=== PATIENT | male | born 1960 | race Two or more races ===

== ENCOUNTER 2016-06-20 22:51 | Emergency (ER) | payer MEDICARE, OTHER ==
[~2016-06-20] VITALS: Ht 170.2 cm; Wt 111.0 kg
[~2016-06-20 22:51] MED LIST: ASPI-664 PO; ATOR20TA38 PO; CARV6.2579 PO; FURO40TA4 PO; LOSA100T47 PO; NIFE30TA8 PO; VALS320T11 PO
[2016-06-20 22:54] VITALS: Ht 170.2 cm; Wt 111.0 kg
[2016-06-21 00:52] VITALS: BP 147/88; PULSE 66; TEMP 97.8
--- NOTE | 2016-06-21 01:06 | ERD ---
ER Documentation Chief Complaint Date/Time DATE: 06/21/16 TIME: 01:01 Chief Complaint nose bleed since earlier today HPI 55-year-old male complaining of several episodes of epistaxis since 5 AM. He was able to control the bleeding. He also has runny nose and sneezing. Every time he sneezes, the nose would start bleeding again. Patient has history of ID , CHF, hypertension, hypercholesterol. He is taking blood pressure medications as well as diuretics. But he did not take his medication today. Denies fever or chills. Denies shortness of breath. Denies headache. Denies chest pain. ROS All systems reviewed and are negative except as per history of present illness. Medications Home Meds Reported Medications Aspirin* (Aspirin* EC) 81 Mg Tablet.dr, 81 MG PO DAILY, TAB 05/20/14 Atorvastatin Calcium* (Atorvastatin Calcium*) 20 Mg Tablet, 20 MG PO HS, TAB 05/20/14 Valsartan* (Diovan*) 320 Mg Tablet, 320 MG PO DAILY, TAB 05/20/14 Losartan Potassium* (Cozaar*) 100 Mg Tablet, 100 MG PO DAILY, TAB 05/20/14 Carvedilol* (Carvedilol*) 6.25 Mg Tablet, 6.25 MG PO BID, TAB 05/20/14 Furosemide* (Furosemide*) 40 Mg Tablet, 40 MG PO BID, TAB 05/20/14 Nifedipine (Nifedical XL*) 30 Mg/Bottle Tab.osm.24, 30 MG PO DAILY, TAB.SA 05/20/14 Allergies Allergies: Coded Allergies: No Known Drug Allergies (Verified Allergy, Unknown, 05/27/14) PMhx/Soc History of Surgery: Yes (cardiac cath) Hx Neurological Disorder: No Hx Respiratory Disorders: Yes (SOB W. EXCERTION) Hx Cardiac Disorders: Yes (HX OF ID, EDEL LOW EF) Hx Psychiatric Problems: Yes Hx Miscellaneous Medical Probl: Yes (cardiomyopathyhtn,dyslipidemia,) Hx Alcohol Use: No Hx Substance Use: No Hx Tobacco Use: Yes Smoking Status: Unknown if ever smoked Physical Exam Vitals Vital Signs Date Time Temp Pulse Resp B/P Pulse Ox O2 Delivery O2 Flow Rate FiO2 06/21/16 00:52 97.8 66 147/88 98 Room Air 06/20/16 22:54 98.7 71 18 195/92 97 Physical Exam General impression: Well-developed, well-nourished. Alert, oriented, in no acute distress Head: Normocephalic, atraumatic. Eyes: PERRL, EOM normal. Conjunctiva not injected. ENT: Clear nasal discharge noted in the right nostril. Blood clots in the left nostril, no active bleeding. Oral mucosa and oropharynx are normal. Neck: Supple, nontender. No lymphanopathy. No nuchal rigidity. Respiration: Normal respiratory effort. Lungs clear to auscultate bilaterally. No wheezes, rales or rhonchi. Cardiovascular: Regular rate and rhythm. No murmurs or extra heart sounds. Neuro: Mental status normal, speech normal. Skin: Normal turgor. No rash or lesions. Psych: Normal mood and affect. Procedures/MDM Well-appearing 55-year-old male presents to ED with several episodes of epistaxis today. He is able to control his bleeding. There is no active bleeding at this time. Patient is educated on techniques to stop the epistaxis. He is also advised to refrain from blowing his nose or sneezing for 12-24 hours to prevent recurrence of epistaxis. His blood pressure on presentation was 195/92. Recheck of blood pressure was 147/88. Patient is counseled on not skipping his medications. Patient also advised to follow-up with his PCP for medication adjustment to control his blood pressure. Patient appears well, stable for discharge and outpatient management. Medical decision making shared with patient and family. Education provided to patient and family. Patient and family expressed understanding of the plan. Medications on discharge: None. Follow-up: Primary care provider in 2-3 days or return to ED if worse. Departure Diagnosis: Primary Impression: Epistaxis Condition: Good Patient Instructions: Epistaxis (Adult) Referrals: JORGE DUQUE DO (PCP) Additional Instructions: Call your primary care doctor TOMORROW for an appointment during the next 2-3 days.See the doctor sooner or return here if your condition worsens before your appointment time. JARVIS AYERS NP Jun 21, 2016 01:06
== END 2016-06-21 01:11 | disposition home or self-care (01) ==
LOC: FTE 22:51
DX: R04.0 Epistaxis (principal); I10 Essential (primary) hypertension; Z87.891 Personal history of nicotine dependence; Z79.82 Long term (current) use of aspirin
CPT/HCPCS: 99282

== ENCOUNTER 2018-05-18 05:25 | Inpatient (IN) | payer MEDICARE, OTHER ==
[2018-05-18] VITALS (14 sets, daily range): BP systolic 103–124; BP diastolic 62–100; PULSE 70–76; RESP 16–28; Ht 172.7 cm; Wt 122.7 kg
[~2018-05-18] VITALS: Ht 172.7 cm; Wt 122.7 kg
[~2018-05-18 05:25] MED LIST changes: -ASPI-664 PO; +ASPI-817 PO; +LOSA100T3 PO; -LOSA100T47 PO; -VALS320T11 PO
[2018-05-18] MEDS ORDERED: FUROSEMIDE 100 MG INJ IV STA (05:31)
[2018-05-18] MEDS ORDERED: NITROGLYCERIN 50 MG/D5W (PMX) 250 ML IV STA (05:31)
[2018-05-18] MEDS ORDERED: ASPIRIN 81 MG TAB PO STA (05:31)
[2018-05-18] MEDS ORDERED: morphine 4 MG/ML VIAL IV STA (05:31)
--- NOTE | 2018-05-18 05:51 | ERD ---
ER Documentation Chief Complaint Chief Complaint SOB HPI This is a 57 mL comes in with acute onset shortness of breath. History of pulmonary edema past. Said he woke up feeling like he was "drowning ". No nausea no vomiting. Mild associated chest pain. No fevers or chills. No other current complaints. Reviewing EMR, patient's been here for pulmonary edema in the past multiple times. ROS All systems reviewed and are negative except as per history of present illness. Medications Home Meds Reported Medications Aspirin* (Aspirin* EC) 81 Mg Tablet.dr, 81 MG PO DAILY, TAB 05/20/14 Atorvastatin Calcium* (Atorvastatin Calcium*) 20 Mg Tablet, 20 MG PO HS, TAB 05/20/14 Losartan Potassium* (Cozaar*) 100 Mg Tablet, 100 MG PO DAILY, TAB 05/20/14 Carvedilol* (Carvedilol*) 6.25 Mg Tablet, 6.25 MG PO BID, TAB 05/20/14 Furosemide* (Furosemide*) 40 Mg Tablet, 40 MG PO BID, TAB 05/20/14 Nifedipine (Nifedical XL*) 30 Mg/Bottle Tab.osm.24, 30 MG PO DAILY, TAB.SA 05/20/14 Allergies Allergies: Coded Allergies: No Known Drug Allergies (Verified Allergy, Unknown, 05/27/14) PMhx/Soc History of Surgery: Yes (pace maker) Anesthesia Reaction: No Hx Neurological Disorder: Yes Hx Respiratory Disorders: No Hx Cardiac Disorders: Yes (cardiac arrest 2013/pace maker) Hx Psychiatric Problems: No Hx Miscellaneous Medical Probl: No Hx Alcohol Use: No Hx Substance Use: No Hx Tobacco Use: Yes (5-6 cig/filter/day) Physical Exam Vitals Vital Signs Date Temp Pulse Resp B/P (MAP) Pulse Ox O2 O2 Flow FiO2 Time Delivery Rate 05/18/18 98.0 122 29 190/137 100 BIPAP 05:43 (154) 05/18/18 99.2 118 26 220/118 100 05:31 (152) Physical Exam Const: No acute distress Head: Atraumatic Eyes: Normal Conjunctiva ENT: Normal External Ears, Nose and Mouth. Neck: Full range of motion. No meningismus. Resp: Clear to auscultation bilaterally Cardio: Regular rate and rhythm, no murmurs Abd: Soft, non tender, non distended. Normal bowel sounds Skin: No petechiae or rashes Back: No midline or flank tenderness Ext: No cyanosis, or edema Neur: Awake and alert Psych: Normal Mood and Affect Results 24 hrs Laboratory Tests Test 05/18/18 05:35 05/18/18 05:39 White Blood Count Pending Red Blood Count Pending Hemoglobin Pending Hematocrit Pending Mean Corpuscular Volume Pending Mean Corpuscular Hemoglobin Pending Mean Corpuscular Hemoglobin Concent Pending Red Cell Distribution Width Pending Platelet Count Pending Mean Platelet Volume Pending POC Venous Lactate 4.0 mmol/L Current Medications Medications Dose Sig/Usha Start Time Status Last (Trade) Ordered Route PRN Stop Time Admin Dose Reason Admin 250 ml @ ONCE STAT 05/18/18 05/18/18 Nitroglycerin 12 mls/hr IV 05:31 05:42 / Dextrose 05/19/18 02:20 Morphine 4 mg ONCE STAT 05/18/18 DC Sulfate IV 05:31 (morphine) 05/18/18 05:33 Aspirin 162 mg ONCE STAT 05/18/18 DC (Aspirin) PO 05:31 05/18/18 05:33 Furosemide 80 mg ONCE STAT 05/18/18 DC (Lasix) IV 05:31 05/18/18 05:33 Procedures/MDM EKG: Rate/Rhythm: Sinus tachycardia at 133 bpm QRS, ST, T-waves: [No changes consistent w/ acute ischemia] Impression: Sinus tachycardia Chest X-ray 1V Interpreted by me: Soft Tissue: No acute abnormalities Bones: No acute abnormalities Mediastinum/Cardiac Silhouette/Lungs: Cardiomegaly, increased interstitial fluid markings, cephalization. Impression: Acute pulmonary edema Patient's heart failure symptoms is concerning for acute decompensation and will require inpatient workup and monitoring. Further w/u for ischemia, arrhythmia, PE or dissection will be deferred to the inpatient team. Patient's lactic acid was elevated, however this is secondary to hypoxia from acute pulmonary edema and will not be treated for sepsis Accepting Care Team: Current data and ongoing care discussed. Time: 5:50 AM Primary Provider: Dr. Washington Consulting: Deferred to inpatient team Outstanding Data: none Departure Diagnosis: Primary Impression: Acute pulmonary edema Additional Impressions: Hypertensive emergency Respiratory failure Chronicity: acute Respiratory failure complication: unspecified whether with hypoxia or hypercapnia Qualified Codes: J96.00 - Acute respiratory failure, unspecified whether with hypoxia or hypercapnia Condition: Critical DUYEN DENNY May 18, 2018 05:51
[2018-05-18] MEDS ORDERED: IPRATROPIUM (NEB) 0.5 MG/2.5 ML AMP ONE (05:53)
[2018-05-18] MEDS ORDERED: LEVALBUTEROL (NEB) 1.25 MG/0.5 ML AMP ONE (05:53)
[2018-05-18] MEDS ORDERED: BISACODYL (EC) 5 MG TAB PO PRN (06:00)
[2018-05-18] MEDS ORDERED: ACETAMINOPHEN 650MG/20.3ML CUP PO PRN (06:00)
[2018-05-18] MEDS ORDERED: DOCUSATE SODIUM 100 MG CAP PO PRN (06:00)
[2018-05-18] MEDS ORDERED: IPRATROPIUM (NEB) 0.5 MG/2.5 ML AMP NEB PRN (06:00)
[2018-05-18] MEDS ORDERED: PANTOPRAZOLE 40 MG INJ IV SCH (06:00)
[2018-05-18] MEDS ORDERED: ONDANSETRON 4 MG INJ IV PRN (06:00)
[2018-05-18] MEDS ORDERED: FUROSEMIDE 20 MG INJ ONE (06:38)
[2018-05-18] MEDS ORDERED: CARV25TA79 PO (06:58)
[2018-05-18] MEDS ORDERED: SACU1TAB PO (06:59)
--- NOTE | 2018-05-18 07:32 | HP ---
Date/Time of Note Date/Time of Note DATE: 05/18/18 TIME: 07:30 Assessment/Plan VTE Prophylaxis Pharmacological prophylaxis: LMWH Lines/Catheters IV [facility]ter [facility]from [facility] Saline Lock Assessment/Plan Hospital Course This is a 57-year-old male being admitted to the ICU floor for: #1Flash pulmonary edema: Secondary likely to underlying hypertensive emergency versus [place] versus other pathology. Patient denies any chest pain. Patient did patient was initiated on BiPAP and started on a nitro drip this has resulted in improvement of his symptoms. He was also given 80 of IV Lasix. We will continue diuresis of the patient. We will obtain a stat echocardiogram at the request of the patient's liability analyst Dr. Glenroy werner. Initial troponin was negative will trend troponins, EKG did not show any acute changes compared to the old EKG. Will monitor closely in the ICU. #2 hypertensive emergency: Secondary possibly to underlying medical noncompliance versus excessive salt intake or fluid intake: Currently on nitro drip. We will resume patient's losartan. Will consult cardiology for further management. 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 Will resume at 40 IV twice daily. Resume patient's home medications. Echocardiogram is also in progress. #4 lactic acidosis: Possibly secondary to hypoperfusion. Patient is afebrile. We will continue to trend lactate. Blood cultures have been ordered. No indication for antibiotics at the current time. #5 diabetes mellitus: Most recent A1c is 5.6. #6 hypertension: Resume losartan, initiate further medications at the discretion of cardiology. #7 DVT GI prophylaxis: Lovenox, no GI prophylaxis indicated Further treatment strategy will be implemented as per the clinical course. Result Diagram: 05/18/18 0535 05/18/18 0535 Results 24hrs Laboratory Tests Test 05/18/18 05:31 05/18/18 05:35 05/18/18 05:39 Blood Gas Specimen Blood arterial Source Arterial Blood Date 05/18/2018 6:00:23 AM Drawn Arterial Blood pH 7.185 *L (Temp corrected) Arterial Blood pCO2 67.1 H (Temp correct) Arterial Blood pO2 248.2 H (Temp corrected) Arterial Blood HCO3 24.8 Arterial Blood Base -5.2 L Excess Arterial Blood 99.2 H Oxygen Saturation Geremias Test ACCEPTAB Arterial Blood Gas Right Radial Puncture Site Arterial 0.4 Blood Carboxyhemoglobin Arterial Blood 0.4 Methemoglobin Blood Gas A-a O2 178.8 H Differential Oxyhemoglobin Percent 98.4 Blood Gas Temperature 37.0 Blood Gas Respiration 16.0 Rate Blood Gas Actual 35 Respiration Rate Blood Gas Modality MASK - BIPAP FiO2 70.0 Blood Gas Pressure 13 Support Blood Gas IPAP/EPAP Ratio 18/5 Blood Gas Critical Value [address] DENNY Read Back Blood Gas Notified Whom Blood Gas Notified Time 05/18/2018 6:27:05 AM White Blood Count 15.3 #H Red Blood Count 5.72 Hemoglobin 17.4 Hematocrit 54.5 #H Mean Corpuscular Volume 95.3 Mean Corpuscular 30.4 Hemoglobin Mean Corpuscular 31.9 L Hemoglobin Concent Red Cell Distribution 12.9 Width Platelet Count 248 # Mean Platelet Volume 10.8 H Immature Granulocytes % 0.300 Neutrophils % 35.8 L Lymphocytes % 53.0 H Monocytes % 7.2 Eosinophils % 3.4 Basophils % 0.3 Nucleated Red Blood Cells 0.0 % Immature Granulocytes # 0.040 H Neutrophils # 5.5 Lymphocytes # 8.1 H Monocytes # 1.1 H Eosinophils # 0.5 Basophils # 0.0 Nucleated Red Blood Cells 0.0 # Prothrombin Time 12.4 Prothrombin Time Ratio 1.0 INR International 0.92 Normalized Ratio Activated 28.0 Partial Thromboplast Time Sodium Level 149 H Potassium Level 5.2 H Chloride Level 107 Carbon Dioxide Level 23 Anion Gap 19 H Blood Urea Nitrogen 20 Creatinine 0.88 Est Glomerular Filtrat > 60 Rate mL/min Glucose Level 196 Calcium Level 9.7 Total Bilirubin 0.4 Direct Bilirubin 0.00 Indirect Bilirubin 0.4 Aspartate Amino 33 Transf (AST/SGOT) Alanine 27 Aminotransferase (ALT/SGP T) Alkaline Phosphatase 66 Troponin I 0.040 B-Type Natriuretic 1750 H Peptide Total Protein 8.7 H Albumin 5.3 H Globulin 3.40 H Albumin/Globulin Ratio 1.55 POC Venous Lactate 4.0 *H HPI/ROS Admit Date/Time Admit Date/Time Hx of Present Illness Chief complaint: Acute shortness of breath This is a 57-year-old male with a past medical history systolic heart failure and hypertension who presents to the ED with sudden onset shortness of breath. Patient reports that he was seen by his liability analyst yesterday Dr. Glenroy werner and at that time everything was fine. He states that overnight he started developing sudden onset shortness of breath and came into the ER. Patient denies any chest pain. Patient in the emergency department was noted to be in hypertensive crisis with systolic blood pressure in the 220s. Patient also was noted to be short of breath. Patient was placed on BiPAP and started on nitro drip. Upon my examination at the bedside the patient's blood pressure had improved to 150 systolic. He was currently on BiPAP and he did report improvement in his breathing. He was given 80 of Lasix IV x1 Allergies: NKDA Medications: See Jul Const: As per HPI Eyes : No pain discharge or redness or change in visual acuity ENT: No pain, sore throat, congestion, congestion, dysphagia or discharge Respiratory: No shortness of breath, cough, sputum, wheezing, or pleuritic pain Cardiovascular: As per HPI GI : no change in appetite, abdominal pain, nausea, vomiting, diarrhea, constipation, or change in the color his stool Genitourinary: No dysuria, hematuria, flank pain , discharge or CVA tenderness Musculoskeletal: No joint pain, back pain, neck pain, restricted range of motion in neck or joints Skin: No rash, bruising or hives Neuro: No headache, dizziness, syncope, seizure, focal weakness Endocrine: No polyuria, polydipsia, temperature intolerance Psych: No hallucination, depression, anxiety or suicidal ideation PMH/Family/Social Past Medical History CHF, diabetes mellitus, hypertension Medications Current Medications Nitroglycerin/ Dextrose 250 ml @ 12 mls/hr ONCE STAT IV Last administered on 05/18/18at 05:42; Admin Dose 12 MLS/HR; Start 05/18/18 at 05:31; Stop 05/19/18 at 02:20 Aspirin (Halfprin) 81 mg DAILY PO ; Start 05/18/18 at 09:00 Atorvastatin Calcium (Lipitor) 20 mg HS PO ; Start 05/18/18 at 21:00 Losartan Potassium (Cozaar) 100 mg DAILY PO ; Start 05/18/18 at 09:00 Ondansetron HCl (Zofran Inj) 4 mg Q6H PRN IV NAUSEA AND/OR VOMITING; Start 05/18/18 at 06:00 Ipratropium [place] (Atrovent 0.02% (Neb)) 0.5 mg Q2H RESP THERAPY PRN NEB SHORTNESS OF BREATH; Start 05/18/18 at 06:00 Acetaminophen (Tylenol Liquid) 650 mg Q6H PRN PO PAIN LEVEL 1-3 OR FEVER; Start 05/18/18 at 06:00 Docusate Sodium (Colace) 100 mg Q12H PRN PO CONSTIPATION; Start 05/18/18 at 06:00 Bisacodyl (Dulcolax) 5 mg DAILY PRN PO CONSTIPATION; Start 05/18/18 at 06:00 Pantoprazole (Protonix Iv) 40 mg DAILY@06 IV Last administered on 05/18/18at 06:48; Admin Dose 40 MG; Start 05/18/18 at 06:00 Enoxaparin Sodium (Lovenox) 40 mg DAILY SC ; Start 05/18/18 at 09:00 Coded Allergies: No Known Drug Allergies (Unverified Allergy, Unknown, 05/18/18) Past Surgical History Pacemaker placement, diagnostic cardiac catheterization in 2014 Family History Significant Family History: no pertinent family hx Social History Smoking Status: Current every day smoker Drug Use: none Exam/Review of Systems Vital Signs Vitals Vital Signs Date Temp Pulse Resp B/P (MAP) Pulse Ox O2 O2 Flow FiO2 Time Delivery Rate 05/18/18 99 100 40 06:43 05/18/18 21 150/87 BIPAP 06:29 (108) 05/18/18 98.0 05:43 05/18/18 15 05:30 Exam Exam General: .patient currently sitting upright in bed on BiPAP and in moderate respiratory distress HEENT: Atraumatic, normocephalic. The pupils are equal, round and reactive. Extraocular motor are intact, on BiPAP Neck: Supple with full range of motion. No rigidity or meningismus Chest: Nontender, Lungs: Coarse breath sounds bilaterally to auscultation, bilateral crackles and rales diffusely, labored breathing Heart: Normal S1-S2, Regular rhythm and rate. Abdomen: Soft , nontender, nondistended , bowel sounds are present. No guarding no rebound tenderness , No masses or organomegaly. No costovertebral temporal angle mass Extremities: Normal to inspection, no edema no cyanosis Neurologic: Normal mental status, speech normal, cranial nerves II through XII are intact, motor and sensory are intact, no focal weakness Additional Comments EKG: Rate/Rhythm: Sinus tachycardia at 133 bpm QRS, ST, T-waves: [No changes consistent w/ acute ischemia] Impression: Sinus tachycardia Echocardiogram Report Patient Name: ADEBAYO MILLS Gender: Male Date: 1960 Study Date: 01-May-2018 Machinist Outside: Minda Lezama RDCS Location: [address] [place] [address]. Physician: RUPERTO REESE Quality: Adequate Procedures: Transthoracic echocardiogram with complete 2D, M-Mode, and doppler examination. Indications: Chest Pain. 2D/M Mode Doppler Measurement Value Normal Ranges Measurement Value Normal Ranges LVIDd 2D 7.5 3.5 - 5.6 cm AV Peak Moose 1.4 m/sec LVIDs 2D 7.4 2.1 - 4.1 cm AV Peak PG 8.0 mmHg LVPWd 2D 1.2 0.6 - 1.1 cm LVOT Peak Moose 0.7 m/sec IVSd 2D 1.2 0.6 - 1.1 cm LVOT Peak PG 2.0 mmHg AoR Diam 2D 2.8 2.0 - 3.7 cm MV E Peak Moose 1.1 m/sec LA/Ao 2D 2 0 - 1 MV A Peak Moose 0.5 m/sec LA Dimen 2D 5.2 2.3 - 4.0 cm MV E/A 2.1 MV Decel Time 155 msec Lat E` Moose 0.0 m/sec Lateral E/E` 22.7 MV E/A 2.1 TR Peak Moose 3.1 m/sec TR Peak PG 39.0 mmHg RVSP 47.0 mmHg RA Pressure 8.0 Findings Left Ventricle: Mild concentric left ventricular hypertrophy. Severe enlargement of left ventricle cavity. Severe left ventricular systolic dysfunction. Ejection fraction is visually estimated at 30 %. Abnormal Diastolic Function. Right Ventricle: Normal right ventricular size. Normal right ventricular systolic function. Linear artifact in right ventricle suggestive of catheter, pacer lead, or ICD lead. Left Atrium: There is mild enlargement of left atrium. Right Atrium: The right atrium is normal in size. Mitral Valve: Mitral valve leaflets appear mildly thickened. Mild mitral annular calcification. Mild mitral valve regurgitation. Aortic Valve: Normal appearance of the aortic valve. No significant aortic stenosis or insufficiency. Tricuspid Valve: Normal appearance of the tricuspid valve. Estimated peak PA systolic pressure 47 mmHg. There is trace to mild tricuspid regurgitation. Pulmonic Valve: Normal pulmonic valve appearance. Pericardium: Normal pericardium with no significant pericardial effusion. Aorta: Normal aortic root. IVC: Normal size and normal respiratory collapse consistent with normal right atrial pressure. Conclusions Mild concentric left ventricular hypertrophy. Severe enlargement of left ventricle cavity. Severe left ventricular systolic dysfunction. Ejection fraction is visually estimated at 30 %. Abnormal Diastolic Function. Normal right ventricular size. Normal right ventricular systolic function. Linear artifact in right ventricle suggestive of catheter, pacer lead, or ICD lead. There is mild enlargement of left atrium. The right atrium is normal in size. Mild mitral valve regurgitation. No significant aortic stenosis or insufficiency. Estimated peak PA systolic pressure 47 mmHg. There is trace to mild tricuspid regurgitation. Normal pericardium with no significant pericardial effusion. Electronically Signed By: Delgado Galdamez 02-May-2018 12:50:30 -0800 Patient Name: ADEBAYO MILLS Study Date: 01-May-2018 [id number] Dictated By: DELGADO GALDAMEZ DO Signed By: DELGADO GALDAMEZ MUNEEB May 18, 2018 07:32
--- NOTE | 2018-05-18 08:19 | RADRPT ---
Echocardiogram Report Patient Name: ADEBAYO MILLS Gender: Male Date: 1960 Study Date: 18-May-2018 Occupational Health Manager: Minda Lezama [facility] Location: [id number] Ref. Physician: RUPERTO REESE Quality: Technically Difficult Study Procedures: Transthoracic echocardiogram with complete 2D, M-Mode, and doppler examination. Indications: Pulmonary edema. Hypertension. 2D/M Mode Doppler Measurement Value Normal Ranges Measurement Value Normal Ranges LVIDd 2D 6.4 3.5 - 5.6 cm AV Peak Moose 1.1 m/sec LVIDs 2D 6.9 2.1 - 4.1 cm AV Peak PG 5.0 mmHg LVPWd 2D 1.1 0.6 - 1.1 cm LVOT Peak Moose 0.9 m/sec IVSd 2D 1.1 0.6 - 1.1 cm LVOT Peak PG 3.0 mmHg AoR Diam 2D 2.8 2.0 - 3.7 cm TR Peak Moose 2.9 m/sec LA/Ao 2D 1 0 - 1 TR Peak PG 33.0 mmHg LA Dimen 2D 3.6 2.3 - 4.0 cm RVSP 41.0 mmHg RA Pressure 8.0 Findings Left Ventricle: Mild concentric left ventricular hypertrophy. Moderate enlargement of left ventricle cavity. Severe left ventricular systolic dysfunction. Ejection fraction is visually estimated at 25 %. Multiple segmental wall motion abnormalities. Right Ventricle: Normal right ventricular size. Normal right ventricular systolic function. Linear artifact in right ventricle suggestive of catheter, pacer lead, or ICD lead. Left Atrium: The left atrium is normal in size. Right Atrium: The right atrium is normal in size. Mitral Valve: Normal appearance of the mitral valve. Mild mitral annular calcification. Trace mitral regurgitation. Aortic Valve: Normal appearance of the aortic valve. No significant aortic stenosis or insufficiency. Tricuspid Valve: Normal appearance of the tricuspid valve. Estimated peak PA systolic pressure 41 mmHg. There is mild tricuspid regurgitation. Pulmonic Valve: Pulmonic valve not well visualized. Pericardium: Trivial pericardial effusion. Aorta: Normal aortic root. IVC: Dilated IVC with respiratory collapse consistent with elevated right atrial pressure. Conclusions Mild concentric left ventricular hypertrophy. Moderate enlargement of left ventricle cavity. Severe left ventricular systolic dysfunction. Ejection fraction is visually estimated at 25 %. Multiple segmental wall motion abnormalities. Normal appearance of the mitral valve. Mild mitral annular calcification. Trace mitral regurgitation. Normal appearance of the aortic valve. No significant aortic stenosis or insufficiency. Normal appearance of the tricuspid valve. Estimated peak PA systolic pressure 41 mmHg. There is mild tricuspid regurgitation. Dilated IVC with respiratory collapse consistent with elevated right atrial pressure. Trivial pericardial effusion. Electronically Signed By: James Pan 18-May-2018 08:18:20 -0800 Patient Name: ADEBAYO MILLS Study Date: 18-May-2018 [id number]
[2018-05-18] MEDS: ASPIRIN (EC) 81 MG TAB PO SCH (09:00)
[2018-05-18] MEDS: ENOXAPARIN 40 MG/0.4 ML SYG SC SCH (11:05)
--- NOTE | 2018-05-18 13:21 | NUR ---
Informed Rudolph Francois, and Eric of troponin results. Will repeat labs. Pt denies chest pain or numbness or SOB. VSS
[2018-05-18] MEDS: LOSARTAN 50 MG TAB PO SCH (13:39)
--- NOTE | 2018-05-18 15:06 | PN ---
Date/Time of Note Date/Time of Note DATE: 05/18/18 TIME: 15:03 Assessment/Plan VTE Prophylaxis Risk score (from Ns)>0 risk: 5 SCD applied (from Nsg): Yes Pharmacological prophylaxis: heparin Lines/Catheters IV Catheter Type (from Nrsg): Peripheral IV Urinary Cath still in place: No Assessment/Plan Hospital Course 57 yo male with systolic CHF presenting with acute CHF exacerbation and hypertensive emergency - Continue lasix 40 IV BID to euvolemia. Outpatient dose will need to be increased from 20 BID NSTEMI: - Suspect type II OR rather than an ACS Hypertension: - Much improve - Continue Coreg, losartan Transfer to telemetry Result Diagram: 05/18/18 0535 05/18/18 0535 Results 24hrs Laboratory Tests Test 05/18/18 05:31 05/18/18 05:35 05/18/18 05:39 05/18/18 05:53 Blood Gas Blood arterial Specimen Source Arterial Blood 05/18/2018 6:00 Date Drawn :23 AM Arterial Blood 7.185 *L pH (Temp corrected ) Arterial Blood 67.1 H pCO2 (Temp correct) Arterial Blood 248.2 H pO2 (Temp corrected ) Arterial Blood 24.8 HCO3 Arterial Blood -5.2 L Base Excess Arterial Blood 99.2 H Oxygen Saturati on Geremias Test ACCEPTAB Arterial Blood Right Radial Gas Puncture Site Arterial 0.4 Blood Carboxyhe moglobin Arterial Blood 0.4 Methemoglobin Blood Gas A-a 178.8 H O2 Differential Oxyhemoglobin 98.4 Percent Blood Gas 37.0 Temperature Blood Gas 16.0 Respiration Rate Blood Gas 35 Actual Respiration Rat e Blood Gas MASK - BIPAP Modality FiO2 70.0 Blood Gas 13 Pressure Support Blood Gas 18/5 IPAP/EPAP Ratio Blood Gas DR DENNY Critical Value Read Back Blood Gas Notified Whom Blood Gas 05/18/2018 6:27 Notified Time :05 AM White Blood 15.3 #H Count Red Blood Count 5.72 Hemoglobin 17.4 Hematocrit 54.5 #H Mean 95.3 Corpuscular Volume Mean 30.4 Corpuscular Hemoglobin Mean 31.9 L Corpuscular Hemoglobin Conc ent Red Cell 12.9 Distribution Width Platelet Count 248 # Mean Platelet 10.8 H Volume Immature 0.300 Granulocytes % Neutrophils % 35.8 L Lymphocytes % 53.0 H Monocytes % 7.2 Eosinophils % 3.4 Basophils % 0.3 Nucleated Red 0.0 Blood Cells % Immature 0.040 H Granulocytes # Neutrophils # 5.5 Lymphocytes # 8.1 H Monocytes # 1.1 H Eosinophils # 0.5 Basophils # 0.0 Nucleated Red 0.0 Blood Cells # Prothrombin 12.4 Time Prothrombin 1.0 Time Ratio INR 0.92 International Normalized Rati o Activated 28.0 Partial Thrombo plast Time Sodium Level 149 H Potassium Level 5.2 H Chloride Level 107 Carbon Dioxide 23 Level Anion Gap 19 H Blood Urea 20 Nitrogen Creatinine 0.88 Est Glomerular > 60 Filtrat Rate mL/min Glucose Level 196 Calcium Level 9.7 Total Bilirubin 0.4 Direct 0.00 Bilirubin Indirect 0.4 Bilirubin Aspartate Amino 33 Transf (AST/SGO T) Alanine 27 Aminotransferas e (ALT/SGPT) Alkaline 66 Phosphatase Troponin I 0.040 B-Type 1750 H Natriuretic Peptide Total Protein 8.7 H Albumin 5.3 H Globulin 3.40 H Albumin/Globuli 1.55 n Ratio POC Venous 4.0 *H Lactate Hemoglobin A1c 5.6 Test 05/18/18 10:57 05/18/18 14:12 Lactic Acid 1.4 Level Creatine Kinase 173 223 H Creatine Kinase 2.1 Pending Index Creatinine 3.60 H Pending Kinase MB (Mass) Troponin I 0.150 *H Pending Subjective 24 Hr Interval Summary Free Text/Dictation Respiratory status markedly improved, now on NC breathing comfortably Denies SOB Exam/Review of Systems Vital Signs Vitals Vital Signs Date Temp Pulse Resp B/P (MAP) Pulse Ox O2 O2 Flow FiO2 Time Delivery Rate 05/18/18 71 21 124/66 100 14:00 (85) 05/18/18 98.0 Nasal 4.0 12:00 Cannula 05/18/18 40 07:27 Exam + JVD present Breathing comfortably Clear lungs No peripheral edema Medications Medications Current Medications Nitroglycerin/ Dextrose 250 ml @ 12 mls/hr ONCE STAT IV Last administered on 05/18/18at 05:42; Admin Dose 12 MLS/HR; Start 05/18/18 at 05:31; Stop 05/19/18 at 02:20 Aspirin (Halfprin) 81 mg DAILY PO ; Start 05/18/18 at 09:00 Atorvastatin Calcium (Lipitor) 20 mg HS PO ; Start 05/18/18 at 21:00 Losartan Potassium (Cozaar) 100 mg DAILY PO Last administered on 05/18/18at 13:39; Admin Dose 100 MG; Start 05/18/18 at 09:00 Ondansetron HCl (Zofran Inj) 4 mg Q6H PRN IV NAUSEA AND/OR VOMITING; Start 05/18/18 at 06:00 Ipratropium [place] (Atrovent 0.02% (Neb)) 0.5 mg Q2H RESP THERAPY PRN NEB SHORTNESS OF BREATH; Start 05/18/18 at 06:00 Acetaminophen (Tylenol Liquid) 650 mg Q6H PRN PO PAIN LEVEL 1-3 OR FEVER; Start 05/18/18 at 06:00 Docusate Sodium (Colace) 100 mg Q12H PRN PO CONSTIPATION; Start 05/18/18 at 06:00 Bisacodyl (Dulcolax) 5 mg DAILY PRN PO CONSTIPATION; Start 05/18/18 at 06:00 Enoxaparin Sodium (Lovenox) 40 mg DAILY SC Last administered on 05/18/18at 11:05; Admin Dose 40 MG; Start 05/18/18 at 09:00 Furosemide (Lasix) 40 mg BID DIURETICS IV ; Start 05/18/18 at 18:00 Carvedilol (Coreg) 25 mg BID PO ; Start 05/18/18 at 14:30 Clopidogrel Bisulfate (plaVIX) 75 mg DAILY PO ; Start 05/18/18 at 14:30 JAXON JOSE MD May 18, 2018 15:06
[2018-05-18] MEDS: CLOPIDOGREL 75 MG TAB PO SCH (15:37)
[2018-05-18] MEDS: FUROSEMIDE 40 MG INJ IV SCH (18:41)
--- NOTE | 2018-05-18 19:19 | NUR ---
Report given to oncoming nurse. VSS
[2018-05-18] MEDS ORDERED: ATORVASTATIN 20 MG TAB PO SCH (21:00)
--- NOTE | 2018-05-18 22:48 | CONS ---
Date/Time of Note Date/Time of Note DATE: 05/18/18 TIME: 22:43 Assessment/Plan Assessment/Plan Assessment/Plan The pt had NIDCMP with severe HTN and CMP The pt feels better with the bp control Will need a sleep study Will need to avoid salt or salty foods Will need to lose weight. will cont the meds Will give flomax for BPH Will follow up in office [place] for discharge home in am Result Diagram: 05/18/18 0535 05/18/18 0535 Results 24hrs Laboratory Tests Test 05/18/18 05:31 05/18/18 05:35 05/18/18 05:39 05/18/18 05:53 Blood Gas Blood arterial Specimen Source Arterial Blood 05/18/2018 6:00 Date Drawn :23 AM Arterial Blood 7.185 *L pH (Temp corrected ) Arterial Blood 67.1 H pCO2 (Temp correct) Arterial Blood 248.2 H pO2 (Temp corrected ) Arterial Blood 24.8 HCO3 Arterial Blood -5.2 L Base Excess Arterial Blood 99.2 H Oxygen Saturati on Geremias Test ACCEPTAB Arterial Blood Right Radial Gas Puncture Site Arterial 0.4 Blood Carboxyhe moglobin Arterial Blood 0.4 Methemoglobin Blood Gas A-a 178.8 H O2 Differential Oxyhemoglobin 98.4 Percent Blood Gas 37.0 Temperature Blood Gas 16.0 Respiration Rate Blood Gas 35 Actual Respiration Rat e Blood Gas MASK - BIPAP Modality FiO2 70.0 Blood Gas 13 Pressure Support Blood Gas 18/5 IPAP/EPAP Ratio Blood Gas DR DENNY Critical Value Read Back Blood Gas Notified Whom Blood Gas 05/18/2018 6:27 Notified Time :05 AM White Blood 15.3 #H Count Red Blood Count 5.72 Hemoglobin 17.4 Hematocrit 54.5 #H Mean 95.3 Corpuscular Volume Mean 30.4 Corpuscular Hemoglobin Mean 31.9 L Corpuscular Hemoglobin Conc ent Red Cell 12.9 Distribution Width Platelet Count 248 # Mean Platelet 10.8 H Volume Immature 0.300 Granulocytes % Neutrophils % 35.8 L Lymphocytes % 53.0 H Monocytes % 7.2 Eosinophils % 3.4 Basophils % 0.3 Nucleated Red 0.0 Blood Cells % Immature 0.040 H Granulocytes # Neutrophils # 5.5 Lymphocytes # 8.1 H Monocytes # 1.1 H Eosinophils # 0.5 Basophils # 0.0 Nucleated Red 0.0 Blood Cells # Prothrombin 12.4 Time Prothrombin 1.0 Time Ratio INR 0.92 International Normalized Rati o Activated 28.0 Partial Thrombo plast Time Sodium Level 149 H Potassium Level 5.2 H Chloride Level 107 Carbon Dioxide 23 Level Anion Gap 19 H Blood Urea 20 Nitrogen Creatinine 0.88 Est Glomerular > 60 Filtrat Rate mL/min Glucose Level 196 Calcium Level 9.7 Total Bilirubin 0.4 Direct 0.00 Bilirubin Indirect 0.4 Bilirubin Aspartate Amino 33 Transf (AST/SGO T) Alanine 27 Aminotransferas e (ALT/SGPT) Alkaline 66 Phosphatase Troponin I 0.040 B-Type 1750 H Natriuretic Peptide Total Protein 8.7 H Albumin 5.3 H Globulin 3.40 H Albumin/Globuli 1.55 n Ratio POC Venous 4.0 *H Lactate Hemoglobin A1c 5.6 Test 05/18/18 10:57 05/18/18 14:12 05/18/18 20:04 Lactic Acid 1.4 Level Creatine Kinase 173 223 H 263 H Creatine Kinase 2.1 1.7 1.2 Index Creatinine 3.60 H 3.85 H 3.21 H Kinase MB (Mass) Troponin I 0.150 *H 0.156 *H 0.126 *H Consultation Date/Type/Reason Admit Date/Time Hx of Present Illness This is a 57 y/o male with pmh of HTN, HLD, NIDCMP, with a new BiV ICD upgrade from an ICD, who also has sleep apnea, presented with severe sob and fatigue and severe htn with bp of 240 systolic. Past Medical History Medications Current Medications Nitroglycerin/ Dextrose 250 ml @ 12 mls/hr ONCE STAT IV Last administered on 05/18/18at 05:42; Admin Dose 12 MLS/HR; Start 05/18/18 at 05:31; Stop 05/19/18 at 02:20 Aspirin (Halfprin) 81 mg DAILY PO ; Start 05/18/18 at 09:00 Atorvastatin Calcium (Lipitor) 20 mg HS PO Last administered on 05/18/18at 20:18; Admin Dose 20 MG; Start 05/18/18 at 21:00 Losartan Potassium (Cozaar) 100 mg DAILY PO Last administered on 05/18/18at 13:39; Admin Dose 100 MG; Start 05/18/18 at 09:00 Ondansetron HCl (Zofran Inj) 4 mg Q6H PRN IV NAUSEA AND/OR VOMITING; Start 05/18/18 at 06:00 Ipratropium [place] (Atrovent 0.02% (Neb)) 0.5 mg Q2H RESP THERAPY PRN NEB SHORTNESS OF BREATH; Start 05/18/18 at 06:00 Acetaminophen (Tylenol Liquid) 650 mg Q6H PRN PO PAIN LEVEL 1-3 OR FEVER; St art 05/18/18 at 06:00 Docusate Sodium (Colace) 100 mg Q12H PRN PO CONSTIPATION; Start 05/18/18 at 06:00 Bisacodyl (Dulcolax) 5 mg DAILY PRN PO CONSTIPATION; Start 05/18/18 at 06:00 Enoxaparin Sodium (Lovenox) 40 mg DAILY SC Last administered on 05/18/18at 11:05; Admin Dose 40 MG; Start 05/18/18 at 09:00 Furosemide (Lasix) 40 mg BID DIURETICS IV Last administered on 05/18/18at 18:41; Admin Dose 40 MG; Start 05/18/18 at 18:00 Carvedilol (Coreg) 25 mg BID PO Last administered on 05/18/18at 20:18; Admin Dose 25 MG; Start 05/18/18 at 14:30 Clopidogrel Bisulfate (plaVIX) 75 mg DAILY PO Last administered on 05/18/18at 15:37; Admin Dose 75 MG; Start 05/18/18 at 14:30 Allergies: Coded Allergies: No Known Drug Allergies (Unverified Allergy, Unknown, 05/18/18) Social History Smoking Status: Former smoker Drug Use: none Exam/Review of Systems Vital Signs Vitals Vital Signs Date Temp Pulse Resp B/P (MAP) Pulse Ox O2 O2 Flow FiO2 Time Delivery Rate 05/18/18 Nasal 4.0 20:30 Cannula 05/18/18 70 20:00 05/18/18 98.0 16 123/68 94 19:27 (86) 05/18/18 40 07:27 Medications Medications Current Medications Nitroglycerin/ Dextrose 250 ml @ 12 mls/hr ONCE STAT IV Last administered on 05/18/18at 05:42; Admin Dose 12 MLS/HR; Start 05/18/18 at 05:31; Stop 05/19/18 at 02:20 Aspirin (Halfprin) 81 mg DAILY PO ; Start 05/18/18 at 09:00 Atorvastatin Calcium (Lipitor) 20 mg HS PO Last administered on 05/18/18at 20:18; Admin Dose 20 MG; Start 05/18/18 at 21:00 Losartan Potassium (Cozaar) 100 mg DAILY PO Last administered on 05/18/18at 13:39; Admin Dose 100 MG; Start 05/18/18 at 09:00 Ondansetron HCl (Zofran Inj) 4 mg Q6H PRN IV NAUSEA AND/OR VOMITING; Start 05/18/18 at 06:00 Ipratropium [place] (Atrovent 0.02% (Neb)) 0.5 mg Q2H RESP THERAPY PRN NEB SHORTNESS OF BREATH; Start 05/18/18 at 06:00 Acetaminophen (Tylenol Liquid) 650 mg Q6H PRN PO PAIN LEVEL 1-3 OR FEVER; Start 05/18/18 at 06:00 Docusate Sodium (Colace) 100 mg Q12H PRN PO CONSTIPATION; Start 05/18/18 at 06:00 Bisacodyl (Dulcolax) 5 mg DAILY PRN PO CONSTIPATION; Start 05/18/18 at 06:00 Enoxaparin Sodium (Lovenox) 40 mg DAILY SC Last administered on 05/18/18at 11:05; Admin Dose 40 MG; Start 05/18/18 at 09:00 Furosemide (Lasix) 40 mg BID DIURETICS IV Last administered on 05/18/18at 18:41; Admin Dose 40 MG; Start 05/18/18 at 18:00 Carvedilol (Coreg) 25 mg BID PO Last administered on 05/18/18at 20:18; Admin Dose 25 MG; Start 05/18/18 at 14:30 Clopidogrel Bisulfate (plaVIX) 75 mg DAILY PO Last administered on 05/18/18at 15:37; Admin Dose 75 MG; Start 05/18/18 at 14:30 YAYA ALCARAZ MD May 18, 2018 22:48
[2018-05-18] MEDS: TAMSULOSIN (SR) 0.4 MG CAP PO SCH (23:43)
--- NOTE | 2018-05-18 23:56 | NUR ---
Pt came to the unit from ICU at around 19:30. Pt is alert and oriented x 4. Denies pain. No resp distress noted. Pt on 2-4L via nasal cannula. Pt refused to have pic taken on his sacrococcyx and bilat heels. Skin is dry and intact. notified charge nurse.
[2018-05-19] VITALS (12 sets, daily range): BP systolic 115–140; BP diastolic 68–80; PULSE 70–88; RESP 16–20
--- NOTE | 2018-05-19 00:02 | NUR ---
Dr Yañez came by and made new order, noted and carried out. He said pt can be discharge if other doctors clear him tomorrow.
[2018-05-19] MEDS: FUROSEMIDE 40 MG INJ IV SCH (05:39)
--- NOTE | 2018-05-19 05:50 | NUR ---
From 4L to 2l to RA with 95% O2 sat. Denies pain. Just given his Lasix. Lt upper chest AICD placement is intact ,DIONI with steristrip. No bleeding noted.
--- NOTE | 2018-05-19 06:24 | NUR ---
Pt slept well last noc. Denies pain. Was just given his Lasix IVP. On room air now. Calls appropriately using his call light.
[2018-05-19] MEDS: CLOPIDOGREL 75 MG TAB PO SCH (08:27)
[2018-05-19] MEDS: ASPIRIN (EC) 81 MG TAB PO SCH (08:27)
[2018-05-19] MEDS: LOSARTAN 50 MG TAB PO SCH (08:27)
[2018-05-19] MEDS: TAMSULOSIN (SR) 0.4 MG CAP PO SCH (08:27)
[2018-05-19] MEDS: ENOXAPARIN 40 MG/0.4 ML SYG SC SCH (08:36)
--- NOTE | 2018-05-19 11:32 | NUR ---
SW: READMISSION QUESTIONNAIRE SW met with this 57-year-old Dominican speaking male at bedside for readmission questionnaire. Patient recently d/c'd home on 05/02/18 and readmitted 16 days later on 05/18/18 with admitting diagnosis of Acute Pulm Edema. Patient states he did understand the d/c instructions from previous admission. States he followed up with his PMD. States he got all of his medications filled, and denied having any issues with his medications. Patient states he lives home alone at [address] [place] [address]. States he is disabled and receives SSI. States he receives [employer] benefits for about 60-80 hours a month, and [facility] family friend Declan is his IHSS provider, primary caregiver and primary mode of transportation at home. Patient denies having an AHCD, and he verbally designated his son Avtar Carter ([phone]) and daughter Pooja Ravi ([phone]) as surrogate medical spokespersons. All questions/ concerns denied at this time. SW remains available as needed throughout patient's treatment process.
[2018-05-19] MEDS ORDERED: FURO40TA4 PO (15:02)
--- NOTE | 2018-05-19 15:03 | PDOCDIS ---
Discharge Instructions DIAGNOSIS Discharge Diagnosis Acute CHF CONDITION [id number] Patient Condition: [id number] Stable HOME CARE INSTRUCTIONS: [id number] Special Diet: [id number] Carb controlled. Low sodium FOLLOW UP/APPOINTMENTS Follow-up Plan Increase your lasix dose to 40 mg twice daily Follow up in the next 1-2 weeks with your geomatics professor JAXON JOSE MD May 19, 2018 15:03
--- NOTE | 2018-05-19 15:12 | DS ---
Date/Time of Note Date/Time of Note DATE: 05/19/18 TIME: 15:10 Discharge Summary Admission/Discharge Info Admit Date/Time May 18, 2018 at 05:48 Discharge Date/Time Discharge Diagnosis Acute CHF Patient Condition: Stable Hospital Course 57 yo male with systolic CHF presenting with acute CHF exacerbation and hypertensive emergency On arrival he was in hypertensive emergency and flash pulmonary edema. He was treated wtih IV antihypertensives and BIPAP. His respiraotyr symptoms soon resolved. He received IV diuretics to euvolemia and was breathign very comfortably. His lasix dose was increased to 40 mg BID at discharge and was advised to follow up soon after discharge with his javascript developer Home Meds Reported Medications Sacubitril/Valsartan (Entresto 24 mg-26 mg Tablet) 1 Each Tablet, 1 EACH PO DAILY, TAB 05/18/18 Carvedilol* (Carvedilol*) 25 Mg Tablet, 25 MG PO BID, #60 TAB 05/18/18 Aspirin* (Aspirin* EC) 81 Mg Tablet.dr, 81 MG PO DAILY, TAB 05/20/14 Atorvastatin Calcium* (Atorvastatin Calcium*) 20 Mg Tablet, 20 MG PO HS, TAB 05/20/14 Furosemide* (Furosemide*) 40 Mg Tablet, 40 MG PO DAILY, TAB 05/20/14 Discontinued Reported Medications Losartan Potassium* (Cozaar*) 100 Mg Tablet, 100 MG PO DAILY, TAB 05/20/14 Carvedilol* (Carvedilol*) 6.25 Mg Tablet, 6.25 MG PO BID, TAB 05/20/14 Nifedipine (Nifedical XL*) 30 Mg/Bottle Tab.osm.24, 30 MG PO DAILY, TAB.SA 05/20/14 Follow-up Plan Increase your lasix dose to 40 mg twice daily Follow up in the next 1-2 weeks with your javascript developer Primary Care Provider Not On Staff Doctor Pending Labs Laboratory Tests Test 05/18/18 20:04 Creatine Kinase 263 IU/L (23-200) Creatine Kinase Index 1.2 Creatinine Kinase MB (Mass) 3.21 ng/ml (0.0-2.4) Troponin I 0.126 ng/ml (0.000-0.120) Microbiology Date/Time Source Procedure Growth Status 05/18/18 17:30 Nares MRSA Screen - Preliminary Screening in process Resulted JAXON JOSE MD May 19, 2018 15:12
--- NOTE | 2018-05-19 15:40 | CONS ---
Date/Time of Note Date/Time of Note DATE: 05/19/18 TIME: 15:39 Assessment/Plan Assessment/Plan Hospital Course This is a 57 y/o male with pmh of HTN, HLD, NIDCMP, with a new BiV ICD upgrade from an ICD, who also has sleep apnea, presented with severe sob and fatigue and severe htn with bp of 240 systolic. Assessment/Plan The pt is cleared from my point of view for dishcharge home today Result Diagram: 05/18/18 0535 05/18/18 0535 Results 24hrs Laboratory Tests Test 05/18/18 20:04 Creatine Kinase 263 H Creatine Kinase Index 1.2 Creatinine Kinase MB (Mass) 3.21 H Troponin I 0.126 *H Consultation Date/Type/Reason Admit Date/Time May 18, 2018 at 05:48 Initial Consult Date 24 HR Interval Summary Free Text/Dictation pt is doing better Exam/Review of Systems Vital Signs Vitals Vital Signs Date Temp Pulse Resp B/P (MAP) Pulse Ox O2 O2 Flow FiO2 Time Delivery Rate 05/19/18 98.7 70 18 140/80 98 Room Air 15:10 (100) 05/19/18 40 04:55 05/18/18 4.0 21:40 Intake and Output 05/18/18 05/18/18 05/19/18 1515:00 23:00 07:00 IntakeIntake Total 150 ml 100 ml 750 ml OutputOutput Total 775 ml 350 ml 800 ml BalanceBalance -625 ml -250 ml -50 ml Medications Medications Current Medications Aspirin (Halfprin) 81 mg DAILY PO Last administered on 05/19/18at 08:27; Admin Dose 81 MG; Start 05/18/18 at 09:00 Atorvastatin Calcium (Lipitor) 20 mg HS PO Last administered on 05/18/18at 20:18; Admin Dose 20 MG; Start 05/18/18 at 21:00 Losartan Potassium (Cozaar) 100 mg DAILY PO Last administered on 05/19/18at 08:27; Admin Dose 100 MG; Start 05/18/18 at 09:00 Ondansetron HCl (Zofran Inj) 4 mg Q6H PRN IV NAUSEA AND/OR VOMITING; Start 05/18/18 at 06:00 Ipratropium [place] (Atrovent 0.02% (Neb)) 0.5 mg Q2H RESP THERAPY PRN NEB SHORTNESS OF BREATH; Start 05/18/18 at 06:00 Acetaminophen (Tylenol Liquid) 650 mg Q6H PRN PO PAIN LEVEL 1-3 OR FEVER; Start 05/18/18 at 06:00 Docusate Sodium (Colace) 100 mg Q12H PRN PO CONSTIPATION; Start 05/18/18 at 06:00 Bisacodyl (Dulcolax) 5 mg DAILY PRN PO CONSTIPATION; Start 05/18/18 at 06:00 Enoxaparin Sodium (Lovenox) 40 mg DAILY SC Last administered on 05/19/18at 08:36; Admin Dose 40 MG; Start 05/18/18 at 09:00 Furosemide (Lasix) 40 mg BID DIURETICS IV Last administered on 05/19/18at 05:39; Admin Dose 40 MG; Start 05/18/18 at 18:00 Carvedilol (Coreg) 25 mg BID PO Last administered on 05/19/18at 08:27; Admin Dose 25 MG; Start 05/18/18 at 14:30 Clopidogrel Bisulfate (plaVIX) 75 mg DAILY PO Last administered on 05/19/18 08:27; Admin Dose 75 MG; Start 05/18/18 at 14:30 Tamsulosin HCl (Flomax) 0.4 mg BID PO Last administered on 05/19/18at 08:27; Admin Dose 0.4 MG; Start 05/18/18 at 23:00 YAYA ALCARAZ MD May 19, 2018 15:40
--- NOTE | 2018-05-19 16:45 | NUR ---
DC NOTES DC instructions given and explained to the patient with at bedside. Pt teaching on the importance of following a low NA diet given, new medications effects and side effects teaching also done. and pt verbalized understanding. Tele monitor and IV dc'd. Belongings intact and returned to the pt. Pt escorted out of the unit via wheelchair by volunteers
== END 2018-05-19 16:20 | disposition home or self-care (01) | DRG 291 ==
LOC: E/R 05:25 → ICU 05:48 → TEL 19:18
PROVIDERS: ADMIT Family Medicine; ATTEND Family Medicine
DX: I11.0 Hypertensive heart disease with heart failure (principal); J96.00 Acute respiratory failure, unspecified whether with hypoxia or hypercapnia; I16.1 Hypertensive emergency; E87.2 Acidosis; I50.43 Acute on chronic combined systolic (congestive) and diastolic (congestive) heart failure; Z72.0 Tobacco use; I25.2 Old myocardial infarction; Z95.810 Presence of automatic (implantable) cardiac defibrillator; G47.30 Sleep apnea, unspecified; E11.9 Type 2 diabetes mellitus without complications; Z91.11 Patient's noncompliance with dietary regimen; Z91.14 Patient's other noncompliance with medication regimen; N40.0 Benign prostatic hyperplasia without lower urinary tract symptoms
CPT/HCPCS: 36415; 36600; 71045; 80053; 82550; 82553; 82803; 83036; 83605; 83880; 84484; 85025; 85610; 85730; 87040; 87081; 93005; 93306; 94660; 96374; J1650; J1940; J2270; J2405